=== PATIENT | male | born 1980 | race Hispanic/Latino ===

== ENCOUNTER → 2019-07-23 | Outpatient (CLI) | payer BC ==
--- NOTE | 2019-07-23 11:27 | DIREP ---
PROCEDURE:XRAY SPINE LUMBAR 2-3 VWS COMPARISON:None. INDICATIONS:LOW BACK PAIN TECHNIQUE:AP, lateral, and coned down lateral views of the lumbar spine are provided. FINDINGS: ALIGNMENT:Normal. VERTEBRAE:There are 4 non rib-bearing lumbar vertebral bodies as a normal variant. A limbus type vertebra is incidentally noted at the anterior superior endplate of L4. Minimal anterior spurring is seen at L3-4. DISK SPACES:Normal. SPONDYLOLISTHESIS:None. SACROILIAC JOINTS:Normal. OTHER:Normal. CONCLUSION:There are minimal degenerative changes at L3-4. Incidentally noted is a limbus type vertebra at the anterior superior endplate of L4. Dictated by: Bertram Starr M.D. on 07/23/2019 at 11:24 AM
== END | disposition home or self-care (01) ==
LOC: RAD 11:01
PROVIDERS: ATTEND Chiropractor
DX: M47.816 Spondylosis without myelopathy or radiculopathy, lumbar region (principal); M54.5 Low back pain
CPT/HCPCS: 72100